=== PATIENT | male | born 1985 | race Two or more races ===

== ENCOUNTER 2020-08-14 17:17 | Emergency (ER) | payer MEDICAID ==
[~2020-08-14] VITALS: Ht 175.3 cm; Wt 108.9 kg
[~2020-08-14 17:17] MED LIST: ALBUAER3 IN; AMOX-263 PO; IBUP800T24 PO; PSEU120T2 PO; [UNRECOGNIZED DRUG - CODE] PO
[2020-08-14 20:50] VITALS: BP 142/96
[2020-08-14] MEDS ORDERED: IBUPROFEN 800 MG TAB PO ONE (21:15)
[2020-08-14] MEDS ORDERED: ACETAMINOPHEN 325 MG TAB PO ONE (21:15)
== END 2020-08-14 21:30 | disposition home or self-care (01) ==
LOC: ER 17:17
DX: S00.411A Abrasion of right ear, initial encounter (principal); M54.2 Cervicalgia; R68.84 Jaw pain; R22.0 Localized swelling, mass and lump, head; R51 Headache; Y08.89XA Assault by other specified means, initial encounter; Y93.89 Activity, other specified; Y92.89 Other specified places as the place of occurrence of the external cause; Y99.8 Other external cause status
CPT/HCPCS: 70450; 70486; 72125